=== PATIENT | male | born 1955 | race Native Hawaiian/Other Pacific Islander ===

== ENCOUNTER 2016-09-19 00:33 | Emergency (ER) | payer BC ==
[~2016-09-19] VITALS: Ht 157.5 cm; Wt 77.1 kg
== END 2016-09-19 01:57 | disposition home or self-care (01) ==
LOC: ED 00:33
DX: R19.7 Diarrhea, unspecified (principal); K52.9 Noninfective gastroenteritis and colitis, unspecified; R10.9 Unspecified abdominal pain
CPT/HCPCS: 99282